=== PATIENT | male | born 1990 | race Caucasian/White ===

== ENCOUNTER 2017-05-26 20:00 | Emergency (ER) | payer SELFPAY ==
[~2017-05-26] VITALS: Ht 182.9 cm; Wt 127.0 kg
[~2017-05-26 20:00] MED LIST: CYCL10TA9 PO; HYDR-757 PO; NAPR550T PO; NITR-65 PO
--- NOTE | 2017-05-26 20:21 | ED Upper Extremity ---
General Chief Complaint: Upper Extremity Stated Complaint: RT SHOULDER PAIN Nursing Triage Note: c/o R shoulder pain after sliding into 2nd base last evening Nursing Sepsis Screen: No Definite Risk Source: patient Exam Limitations: no limitations History of Present Illness Time seen by provider: 20:21 Initial Comments 26-year-old male patient presents to the emergency department complaints of right shoulder pain after sliding into second base yesterday evening. Denies numbness or tingling. Onset: yesterday Pain/Injury Location: right shoulder Method of Injury: sports injury Modifying Factors: Worse With Movement Allergies and Home Medications Allergies Coded Allergies: Amoxicillin (Verified Allergy, Mild, RASH, 08/26/12) Home Medications No Active Prescriptions or Reported Meds Constitutional: no symptoms reported Respiratory: no symptoms reported Cardiovascular: no symptoms reported Musculoskeletal: see HPI, No back pain, joint pain (right shoulder), No neck pain Skin: No change in color Psychiatric/Neurological: Denies Numbness, Denies Paresthesia, Denies Tingling , Denies Weakness All Other Systems Reviewed Negative Unless Noted: Yes (Negative excepted noted.) Past Ghqjypk-Hmpvxe-Heuqbn Hx Patient Social History Alcohol Use: Occasionally Uses Recreational Drug Use: No Smoking Status: Current Everyday Smoker Type Used: Cigarettes Recent Foreign Travel: No Contact w/Someone Who Travel: No Recent Infectious Disease Expo: No Surgeries HX Surgeries: No Surgeries: Orthopedic Respiratory Hx Respiratory Disorders: No Cardiovascular Hx Cardiac Disorders: No Neurological Hx Neurological Disorders: No Genitourinary Hx Genitourinary Disorders: No Gastrointestinal Hx Gastrointestinal Disorders: No Musculoskeletal Hx Musculoskeletal Disorders: No Endocrine Hx Endocrine Disorders: No HEENT HX ENT Disorders: No Cancer Hx Cancer: No Psychosocial Hx Psychiatric Problems: No Reviewed Nursing Assessment Reviewed/Agree w Nursing PMH: Yes Family Medical History Significant Family History: No Pertinent Family Hx Physical Exam Vital Signs Vital Sign - Last 12Hours 05/26/17 20:09 Temp 98.2 Pulse 90 Resp 18 B/P (MAP) 164/105 Pulse Ox 98 Capillary Refill : Less Than 3 Seconds General Appearance: WD/WN, no apparent distress Cardiovascular: normal peripheral pulses, regular rate, rhythm, no murmur Respiratory: lungs clear, normal breath sounds, no respiratory distress Back: normal inspection, no vertebral tenderness Shoulder: normal inspection, no evidence of injury, normal ROM, No asymmetry, No bone tenderness, No ecchymosis, pain (right shoulder pain), soft tissue tenderness (mild generalized tenderness of the right shoulder) Elbow/Forearm: normal inspection, non-tender, no evidence of injury, normal ROM , Right Wrist: Yes normal inspection, Yes non-tender, Yes no evidence of injury, Yes normal ROM Hand: normal inspection, non-tender, no evidence of injury, normal ROM, Right Neurologic/Tendon: normal sensation, normal motor functions, normal tendon functions, responds to pain, no evidence tendon injury Neurologic/Psychiatric: no motor/sensory deficits, alert, normal mood/affect, oriented x 3 Skin: normal color, warm/dry Progress/Results/Core Measures Results/Orders My Orders Orders - SEAN VIRAMONTES Shoulder, Right, 3 Views (05/26/17 20:15) Vital Signs/I&O Vital Sign - Last 12Hours 05/26/17 20:09 Temp 98.2 Pulse 90 Resp 18 B/P (MAP) 164/105 Pulse Ox 98 Blood Pressure Mean: 124 Diagnostic Imaging Diagonstic Imaging: Xray Plain Films/CT/US/NM/MRI: other (right shoulder) Comments FINDINGS: There is no acute fracture. Glenohumeral and acromioclavicular joints are normal in alignment. Subacromial space is well-maintained. Visualized right upper ribs are intact. No right-sided pneumothorax. IMPRESSION: Normal right shoulder radiographs. Dictated by: Dictated on workstation # [id number] Reviewed: Reviewed by Me (radiology report reviewed by me) Departure Communication Progress Notes Diagnostic findings discussed with the patient. Plan for discharge to home. Impression Impression: Primary Impression: Sprain of right shoulder Disposition: HOME, SELF-CARE Condition: Improved Departure-Patient Inst. Decision time for Depature: 20:57 Referrals: HELEN WEBBER DO (PCP/Family) Primary Care Physician Patient Instructions: Shoulder Sprain (DC) Add. Discharge Instructions: All discharge instructions reviewed with patient and/or family. Voiced understanding. Medications as instructed. Tylenol extra strength over-the- counter as directed for pain. Ice pack for 20 minute intervals as needed for 2- 3 days, then a heating pad or pack if needed. Elevate the right arm on pillows. Activity as tolerated. Follow-up with Dr. Webber if no improvement in symptoms in 7-10 days. Return to the emergency department for worsened symptoms or any other concerns. Scripts Naproxen (Naprosyn) 500 Mg Tablet 500 MG PO BID Y for pain, #20 TAB 0 Refills Prov: SEAN VIRAMONTES 05/26/17 SEAN VIRAMONTES May 26, 2017 20:21
--- NOTE | 2017-05-26 20:41 | Diagnostic Imaging Report ---
INDICATION: Right shoulder pain. COMPARISON: None available. TECHNIQUE: 3 views of the right shoulder. FINDINGS: There is no acute fracture. Glenohumeral and acromioclavicular joints are normal in alignment. Subacromial space is well-maintained. Visualized right upper ribs are intact. No right-sided pneumothorax. IMPRESSION: Normal right shoulder radiographs. Dictated by: Dictated on workstation # [id number]
[2017-05-26] MEDS ORDERED: NAPR500T PO (20:59)
[2017-05-26 21:04] VITALS: BP 158/99
--- OUTSIDE RECORDS SUMMARY | 2017-05-27 09:14 | XMS REPORT | Continuity of Care Document ---
Author Author [facility] Address Unknown Phone Unavailable Allergies Active Description Code Type Severity Reaction Onset Reported/Identified Relationship to Patient Clinical Status Yes amoxicillin [id number] Drug Allergy Mild RASH 08/26/2012 Medications Problems Date Dx Coded Attending Type Code Diagnosis Diagnosed By 08/26/2012 Ot 724.1 08/27/2012 Ot 599.0 08/27/2012 Ot 788.20 10/27/2014 LETA CHEATHAM DO 461.9 SINUSITIS ACUTE 10/27/2014 LETA CHEATHAM DO 466.0 BRONCHITIS, ACUTE 04/05/2015 TYRON DE LEON CLINICAL NUTRITIONIST Ot 719.47 04/05/2015 TYRON DE LEON CLINICAL NUTRITIONIST Ot 959.7 04/05/2015 TYRON DE LEON CLINICAL NUTRITIONIST Ot E000.8 04/05/2015 TYRON DE LEON CLINICAL NUTRITIONIST Ot E007.6 04/05/2015 TYRON DE LEON CLINICAL NUTRITIONIST Ot E849.4 04/05/2015 TYRON DE LEON CLINICAL NUTRITIONIST Ot E928.9 Procedures Results Encounters ACCT No. Visit Date/Time Discharge Status Pt. Type Provider Facility Loc./Unit Complaint [id number] 10/27/2014 10:08:00 10/27/2014 23: 59:59 CLS Outpatient LETA CHEATHAM DO
== END 2017-05-26 21:04 | disposition home or self-care (01) ==
LOC: EDUNIT# 20:00 → ER 20:03
DX: M25.511 Pain in right shoulder (principal)
CPT/HCPCS: 73030; 99282